=== PATIENT | male | born 1995 | race Two or more races ===

== ENCOUNTER 2020-06-02 16:33 | Inpatient (IN) | payer MEDICAID ==
[~2020-06-02] VITALS: Ht 190.5 cm; Wt 114.8 kg
[~2020-06-02 16:33] MED LIST: ARIP1TAB7 PO; CLON-818 PO; CLON1TAB10 PO; HALO1TAB PO
[2020-06-02] MEDS ORDERED: LORazepam 2MG/ML-1ML VIAL ONE (16:38)
[2020-06-02] MEDS ORDERED: LORazepam 2MG/ML-1ML VIAL IV ONE ×2 (16:45→19:45)
[2020-06-02 18:19] LABS: Eosinophils # (auto) 0 10 ^3/uL (0-0.8); Eosinophils % (auto) 0.5 % (0.0-7.0); Hemoglobin 15.4 g/dL (13.5-17.5); Neutrophils # (auto) 6.1 10 ^3/uL (1.6-8.6)
[2020-06-02 18:21] LABS: Basophils # (auto) 0.1 10 ^3/uL (0-0.2); Basophils % (auto) 0.6 % (0.0-2.0); Hematocrit 46.4 % (41.0-53.0); Lymphocytes # (auto) 1.4 10 ^3/uL (0.4-5.4); Lymphocytes % (auto) 16.9 % (10.0-50.0); Mean Corpuscular Hemoglobin 26.1 pg (28.0-32.0); Mean Corpuscular Hgb Conc. 33.2 g/dL (32.0-36.0); Mean Corpuscular Volume 78.7 fL (80.0-100.0); Monocytes # (auto) 0.6 10 ^3/uL (0-1.3); Monocytes % (auto) 7.7 % (0.0-12.0); Neutrophils % (auto) 74.3 % (37.0-80.0); Nucleated Red Blood Cells % 0.1 %; Platelet Count (auto) 278 10^3/uL (140-450); Red Blood Cells 5.89 10^6/uL (4.5-5.90); Red Cell Distribution Width 14.7 % (11.8-14.3); White Blood Cell 8.3 10^3/uL (4.4-10.8)
[2020-06-02 18:27] LABS: INR 1.03 (0.9-1.15); Partial Thromboplastin Time 25.9 sec (23.0-31.2)
[2020-06-02 18:30] LABS: Albumin 3.8 g/dL (3.4-5.0); Anion Gap 9 (5-15); Blood Alcohol < 3.0 mg/dL (0-5); Blood Urea Nitrogen 11 mg/dL (7-18); Calcium 8.8 mg/dL (8.5-10.1); Carbon Dioxide 25 mmol/L (21-32); Chloride 106 mmol/L (98-107); Glucose 91 mg/dL (74-106); Magnesium 2.3 mg/dL (1.6-2.6); Potassium 4.2 mmol/L (3.5-5.1); Sodium 140 mmol/L (136-145)
[2020-06-02 18:35] LABS: Alanine Aminotransferase 42 U/L (16-61); Alkaline Phosphatase 93 U/L (45-117); Aspartate Aminotransferase 16 U/L (15-37); BUN/Creatinine Ratio 11.3; Bilirubin, Total 1.4 mg/dL (0.2-1.0); Creatine Kinase IFCC 288 U/L (39-308); GFR African American 119 mL/min; GFR Non-African American 99 mL/min; Total Protein 7.5 g/dL (6.4-8.2)
[2020-06-02] MEDS ORDERED: MORPHINE SULF INJ 2 MG/ML SYRINGE 1ML IV PRN (19:30)
[2020-06-02] MEDS ORDERED: NITROGLYCERIN 0.4 MG SL TAB SL PRN (19:30)
[2020-06-02] MEDS ORDERED: LORazepam 2MG/ML-1ML VIAL IV PRN (19:30)
[2020-06-02] MEDS ORDERED: clonazePAM 0.5 MG TAB PO PRN (22:00)
[2020-06-02] MEDS: ARIPIPRAZOLE 15 MG PO SCH (22:00)
[2020-06-02 22:47] LABS: Lactic Acid w/Reflex 2.8 mmol/L (0.4-2.0)
[2020-06-02] MEDS: cloNIDine HCL 0.1 MG TAB PO SCH (23:13)
[2020-06-02] MEDS: HALOPERIDOL 1 MG TAB PO SCH (23:14)
[2020-06-03 01:09] VITALS: BP 157/79
[2020-06-03 05:00] VITALS: BP 104/76
[2020-06-03 09:00] VITALS: BP 99/53
[2020-06-03] MEDS: ARIPIPRAZOLE 15 MG PO SCH (10:00)
[2020-06-03] MEDS ORDERED: FAMOTIDINE 20 MG TAB PO SCH (10:00)
[2020-06-03] MEDS: HALOPERIDOL 1 MG TAB PO SCH (10:49)
[2020-06-03] MEDS: cloNIDine HCL 0.1 MG TAB PO SCH (10:50)
[2020-06-03 13:00] VITALS: BP 98/65
[2020-06-03 17:00] VITALS: BP 70/58
[2020-06-04] MEDS ORDERED: INFLUENZA QUAD 2020-2021 0.5 ML SYRG IM ONE (12:00)
== END 2020-06-03 18:00 | disposition home or self-care (01) | DRG 53 ==
LOC: ER 16:33 → TELE 19:29 → TELE-CENTR 23:32
PROVIDERS: ADMIT Nurse Practitioner Acute Care; ATTEND Hospitalist
DX: G40.89 Other seizures (principal); G24.09 Other drug induced dystonia; F84.0 Autistic disorder; E03.9 Hypothyroidism, unspecified; E66.9 Obesity, unspecified; Z20.822 Contact with and (suspected) exposure to COVID-19; T43.4X5A Adverse effect of butyrophenone and thiothixene neuroleptics, initial encounter; Y92.89 Other specified places as the place of occurrence of the external cause; Z79.899 Other long term (current) drug therapy; Z82.49 Family history of ischemic heart disease and other diseases of the circulatory system; Z68.31 Body mass index [BMI] 31.0-31.9, adult
CPT/HCPCS: 36415; 70450; 71250; 72125; 80053; 80320; 82550; 82728; 82962; 83605; 83735; 84443; 84484; 85025; 85610; 85730; 87040; 87426; 96374; 96375; G0378